=== PATIENT | female | born 1970 | race African-American/Black ===

== ENCOUNTER 2017-05-03 18:03 | Emergency (ER) | payer SELFPAY ==
[2017-05-03] MEDS ORDERED: NS 0.9% 1000 ML* 1,000 ML IV ONE (18:17)
[2017-05-03] MEDS ORDERED: methylPREDNISolone 125 MG* 2 ML VIAL IV ONE (18:17)
[2017-05-03] MEDS ORDERED: Magnesium Sulfate 2 GM IV* 2 GM/50 ML BAG IVPB ONE (18:19)
[2017-05-03] MEDS ORDERED: Albuterol/Ipratropium NEB.SOL* Albuterol 2.5 MG/Ipratropium 0.5 MG 3 ML ONE (18:27)
[2017-05-03] MEDS: Albuterol/Ipratropium NEB.SOL* Albuterol 2.5 MG/Ipratropium 0.5 MG 3 ML INH SCH ×2 (18:33→19:03)
--- NOTE | 2017-05-03 18:43 | RAD ---
INDICATION: Shortness of breath. COMPARISON: Comparison is made with a prior study from August 29, 2011. TECHNIQUE: A portable view of the chest was obtained. FINDINGS: Cardiac and mediastinal contours appear to be within normal limits. The lungs are clear. No pleural effusion is seen. IMPRESSION: NO EVIDENCE FOR ACUTE DISEASE.
[2017-05-03 19:02] LABS: Hematocrit 39 % (35-47); Hemoglobin 12.8 g/dl (12.0-16.0); Mean Corpuscular HGB Conc 33 g/dl (31-36); Mean Corpuscular Hemoglobin 28 pg (27-31); Mean Corpuscular Volume 87 fL (80-97); Mean Platelet Volume 8 um3 (7.4-10.4); Red Blood Count 4.51 10^6/ul (4.0-5.4); Red Cell Distribution Width 13 % (10.5-15); White Blood Count 15.1 10^3/ul (3.5-10.8)
[2017-05-03 19:03] LABS: Add Diff/Slide Review? Slide Review Added; Comments Flag Yes
[2017-05-03 19:17] LABS: ALT 18 U/L (7-52); AST 17 U/L (13-39); Albumin 3.6 g/dL (3.2-5.2); Alkaline Phosphatase 43 U/L (34-104); Anion Gap 6 mmol/L (2-11); BUN/Creatinine Ratio 9.3 (8-20); Blood Urea Nitrogen 11 mg/dL (6-24); C Reactive Protein < 1.00 mg/L (< 5.00); CO2 Carbon Dioxide 24 mmol/L (22-32); Calcium 9.1 mg/dL (8.6-10.3); Chloride 107 mmol/L (101-111); EGFR African American 62.9 (>60); EGFR Non-African American 48.9 (>60); Globulin 2.8 g/dL (2-4); Glucose 103 mg/dL (70-100); Potassium 3.7 mmol/L (3.5-5.0); Sodium 137 mmol/L (133-145); Total Protein 6.4 g/dL (6.4-8.9)
[2017-05-03] MEDS ORDERED: predniSONE TAB* 20 MG PO ONE (21:30)
--- NOTE | 2017-05-03 21:30 | ED ---
Course/Dx - Course Course Of Treatment: IMPROVED IN ED, WISHES TO GO HOME. PT DENIES S/SX INFECTION. DISCHARGE HOME STABLE. - Diagnoses Provider Diagnoses: Asthma exacerbation
[2017-05-03 21:59] VITALS: BP 114/63
[2017-05-03] MEDS ORDERED: Albuterol HFA INHALER* 8 gm MDI INH ONE (22:04)
--- NOTE | 2017-05-04 08:31 | ED ---
Caridad Young SooYoung, scribed for Prosper Strickland MD on 05/03/17 at 1816 . Shortness of Breath - HPI Summary HPI Summary: A 47 y/o F presents ED with c/o SOB onset two days ago. Pert PMHx: asthma. Associated sx: productive cough. Pt states that when she coughs it feels as though the phlegm gets stuck. Denies fever, chills. Her last asthma attack was approximately two months ago. Pt admits to medication non-compliance. - History of Current Complaint Chief Complaint: EDShortnessOfBreath Time Seen by Provider: 05/03/17 18:12 Hx Obtained From: Patient Onset/Duration: Lasting Days, Still Present Current Severity: Moderate Associated Signs & Symptoms: Cough (Productive) - Allergy/Home Medications Allergies/Adverse Reactions: Allergies Allergy/AdvReac Type Severity Reaction Status Date / Time Pollen Extract Allergy Mild Congestion Verified 11/01/14 12:22 Dust Mite Extract Allergy Congestion Verified 11/01/14 12:22 Molds & Smuts Allergy Difficulty Verified 11/01/14 12:22 Breathing PMH/Surg Hx/FS Hx/Imm Hx Previously Healthy: No Endocrine/Hematology History: Denies: Hx Anticoagulant Therapy, Hx Diabetes, Hx Thyroid Disease Cardiovascular History: Denies: Hx Hypertension, Hx Pacemaker/ICD Respiratory History: Reports: Hx Asthma Denies: Hx Chronic Obstructive Pulmonary Disease (COPD) History: Denies: Hx Renal Disease Sensory History: Reports: Hx Contacts or Glasses Opthamlomology History: Reports: Hx Contacts or Glasses Neurological History: Denies: Hx Dementia, Hx Seizures Psychiatric History: Reports: Hx Anxiety, Hx Inpatient Treatment, Hx Community Mental Health Tx, Hx Schizophrenia Denies: Hx Attention Deficit Hyperactivity Disorder, Hx Eating Disorder, Hx Depression, Hx Panic Disorder, Hx Post Traumatic Stress Disorder, Hx Bipolar Disorder, Hx Suicide Attempt, Hx of Violent Episodes Against Others, Hx Substance Abuse, Other Psychiatric Issues/Disorders - Immunization History Date of Tetanus Vaccine: UNKNOWN Date of Influenza Vaccine: unknown Infectious Disease History: Denies: Hx Hepatitis, Hx Human Immunodeficiency Virus (HIV), Traveled Outside the US in Last 30 Days - Family History Known Family History: Positive: Other - MENTAL HEALTH - MOTHER - Social History Occupation: Employed Full-time Lives: With Family Alcohol Use: None Hx Substance Use: No Substance Use Type: Reports: None Hx Tobacco Use: No Smoking Status (MU): Never Smoked Tobacco Review of Systems Negative: Fever, Chills Positive: Shortness Of Breath, Cough - PRODUCTIVE All Other Systems Reviewed And Are Negative: Yes Physical Exam - Summary Physical Exam Summary: VITAL SIGNS: Reviewed. GENERAL: Patient is a well-developed and THIN FEMALE. DISTRESS SECONDARY TO SOB , SHE IS ABLE TO SPEAK IN FULL SENTENCES. HEAD AND FACE: No signs of trauma. No ecchymosis, hematomas or skull depressions. No sinus tenderness. EYES: PERRLA, EOMI x 2, No injected conjunctiva, no nystagmus. EARS: Hearing grossly intact. Ear canals and tympanic membranes are within normal limits. MOUTH: Oropharynx within normal limits. NECK: Supple, trachea is midline, no adenopathy, no JVD, no carotid bruit, no c- spine tenderness, neck with full ROM. CHEST: Symmetric, no tenderness at palpation LUNGS: LOW AIR MOVEMENT, SLIGHT WHEEZING. CVS: Regular rate and rhythm, S1 and S2 present, no murmurs or gallops appreciated. ABDOMEN: Soft, non-tender. No signs of distention. No rebound, no guarding, and no masses palpated. Bowel sounds are normal. EXTREMITIES: FROM in all major joints, no edema, no cyanosis or clubbing. NEURO: Alert and oriented x 3. No acute neurological deficits. Speech is normal and follows commands. SKIN: Dry and warm Triage Information Reviewed: Yes Vital Signs On Initial Exam: Initial Vitals BP 128/82 05/03/17 18:08 Vital Signs Reviewed: Yes Diagnostics - Vital Signs Vital Signs Temp Pulse Resp BP Pulse Ox 05/03/17 21:57 98.6 F 93 16 114/63 05/03/17 21:56 92 94 05/03/17 21:54 114/63 05/03/17 19:36 92 19 150/131 96 05/03/17 19:32 90 15 97 05/03/17 19:00 92 19 99 05/03/17 18:53 82 18 98 05/03/17 18:30 87 19 127/75 98 05/03/17 18:10 87 98 05/03/17 18:09 98.4 F 117 18 128/82 98 05/03/17 18:08 128/82 - Laboratory Lab Results: Lab Results 05/03/17 05/03/1717 Range/Units 18:55 18:55 18:55 WBC 15.1 H (3.5-10.8) 10^3/ul RBC 4.51 (4.0-5.4) 10^6/ul Hgb 12.8 (12.0-16.0) g/dl Hct 39 (35-47) % MCV 87 (80-97) fL MCH 28 (27-31) pg MCHC 33 (31-36) g/dl RDW 13 (10.5-15) % Plt Count 220 (150-450) 10^3/ul MPV 8 (7.4-10.4) um3 Neut % (Auto) 40.6 (38-83) % Lymph % (Auto) 35.7 (25-47) % [place] % (Auto) 6.5 (1-9) % Eos % (Auto) 16.8 H (0-6) % Baso % (Auto) 0.4 (0-2) % Absolute Neuts (auto) 6.1 (1.5-7.7) 10^3/ul Absolute Lymphs (auto) 5.4 H (1.0-4.8) 10^3/ul Absolute Monos (auto) 1.0 H (0-0.8) 10^3/ul Absolute Eos (auto) 2.5 H (0-0.6) 10^3/ul Absolute Basos (auto) 0.1 (0-0.2) 10^3/ul Absolute Nucleated RBC 0.01 10^3/ul Nucleated RBC % 0 Hem Pathologist Commnt Pending Sodium 137 (133-145) mmol/L Potassium 3.7 (3.5-5.0) mmol/L Chloride 107 (101-111) mmol/L Carbon Dioxide 24 (22-32) mmol/L Anion Gap 6 (2-11) mmol/L BUN 11 (6-24) mg/dL Creatinine 1.18 H (0.51-0.95) mg/dL Est GFR ( Amer) 62.9 (>60) Est GFR (Non-Af Amer) 48.9 (>60) BUN/Creatinine Ratio 9.3 (8-20) Glucose 103 H (70-100) mg/dL Lactic Acid 1.5 (0.5-2.0) mmol/L Calcium 9.1 (8.6-10.3) mg/dL Total Bilirubin 0.60 (0.2-1.0) mg/dL AST 17 (13-39) U/L ALT 18 (7-52) U/L Alkaline Phosphatase 43 (34-104) U/L C-Reactive Protein < 1.00 (< 5.00) mg/L Total Protein 6.4 (6.4-8.9) g/dL Albumin 3.6 (3.2-5.2) g/dL Globulin 2.8 (2-4) g/dL Albumin/Globulin Ratio 1.3 (1-3) Result Diagrams: 05/03/17 18:55 05/03/17 18:55 Lab Statement: Any lab studies that have been ordered have been reviewed, and results considered in the medical decision making process. - Radiology CXR Xray Interpretation: No Acute Changes - IMPRESSION: No evidence for acute dz. Radiology Interpretation Completed By: Radiologist - EKG 1 EKG Rhythm: Sinus Rhythm - 80bpm ST Segment: Normal - no ST elevation Course/Dx - Course Assessment/Plan: A 47 y/o F presents ED with c/o SOB onset two days ago. Pert PMHx: asthma. Associated sx: productive cough. Pt states that when she coughs it feels as though the phlegm gets stuck. Denies fever, chills. Her last asthma attack was approximately two months ago. Pt admits to medication non- compliance. In the ED course an IV access was obtained. Patient was placed in a quality assurance monitor. Patient was started with IV fluids. She was started with Solumedrol, Duonebs and Magnesium since patient has poor air movement. Labs within normal limits except for. Troponin #1: and Troponin # 2 (4 hours later): EKG shows a NSR at 80 BPM w/o ST elevations. CXR impression: No evidence of acute disease. . In the ED course she has been improving and stable. She will be signed out to Dr. Hendrickson to check for lab test and further disposition - Diagnoses Differential Diagnosis/HQI/PQRI: Positive: Asthma, Bronchitis, CHF, COPD Exacerbation Provider Diagnoses: Asthma exacerbation Discharge - Discharge Plan Condition: Stable Disposition: HOME Discharge Disposition Comment: SO to Dr. Sosa pending neb treatment, dx Prescriptions: predniSONE TAB* [Deltasone TAB*] 40 mg PO DAILY #8 tab Patient Education Materials: Asthma (ED) Referrals: [facility] [Outside] Additional Instructions: FOLLOW UP WITH YOUR DOCTOR. RETURN TO THE EMERGENCY DEPARTMENT FOR ANY WORSENING OF YOUR CONDITION OR QUESTIONS OR CONCERNS. The documentation as recorded by the Caridad foss SooYoung accurately reflects the service I personally performed and the decisions made by , Prosper Strickland MD.
== END 2017-05-03 21:57 | disposition home or self-care (01) ==
LOC: ED 18:03
DX: J45.901 Unspecified asthma with (acute) exacerbation (principal); R06.02 Shortness of breath; R05 Cough
CPT/HCPCS: 36415; 71010; 80053; 83605; 85025; 85060; 86140; 93005; 94640; 99283; A9270-GY; J2930; J7512

== ENCOUNTER 2017-06-11 04:52 | Inpatient (IN) | payer MEDICAID ==
[2017-06-11] MEDS ORDERED: LORazepam INJ* 2 MG/ML 1 ML VIAL ONE (05:07)
[2017-06-11] MEDS ORDERED: LORazepam INJ* 2 MG/ML 1 ML VIAL IM ONE (05:20)
--- NOTE | 2017-06-11 05:20 | ED ---
Mimi Young Rebecca, scribed for Juan David Torrez MD on 06/11/17 at 0510 . Psychiatric Complaint - HPI Summary HPI Summary: Pt is a 47 y/o F BIBA as a 941 who presents to ED in a catatonic state. Per EMS , she was found in the bathroom at work at 0430, standing in a catatonic state. At this point, she will not speak or allow anyone to touch her. Sx aggravated and alleviated by nothing. 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 Previously, catatonic state has been alleviated by 1 mg Ativan IM TID. Last admission for similar sx was in 2013. Level 5 caveat due to catatonic state. - History Of Current Complaint Time Seen by Provider: 06/11/17 05:05 Hx Obtained From: Medical Records Hx From Patient Unobtainable Due To: Other - Catatonic state Onset/Duration: Still Present Timing: Constant Aggravating Factor(s): Nothing Alleviating Factor(s): Nothing Associated Signs And Symptoms: Positive: Negative Related History: Positive For: Prior Psychiatric Issues - Schizophrenia - Allergies/Home Medications Allergies/Adverse Reactions: Allergies Allergy/AdvReac Type Severity Reaction Status Date / Time Pollen Extract Allergy Mild Congestion Verified 11/01/14 12:22 Dust Mite Extract Allergy Congestion Verified 11/01/14 12:22 Molds & Smuts Allergy Difficulty Verified 11/01/14 12:22 Breathing Home Medications: Home Medications NK [No Home Medications Reported] 06/11/17 [History Confirmed 06/11/17] PMH/Surg Hx/FS Hx/Imm Hx Endocrine/Hematology History: Denies: Hx Anticoagulant Therapy, Hx Diabetes, Hx Thyroid Disease Cardiovascular History: Denies: Hx Hypertension, Hx Pacemaker/ICD Respiratory History: Reports: Hx Asthma Denies: Hx Chronic Obstructive Pulmonary Disease (COPD) History: Denies: Hx Renal Disease Sensory History: Reports: Hx Contacts or Glasses Opthamlomology History: Reports: Hx Contacts or Glasses Neurological History: Denies: Hx Dementia, Hx Seizures Psychiatric History: Reports: Hx Anxiety, Hx Inpatient Treatment, Hx Community Mental Health Tx, Hx Schizophrenia Denies: Hx Attention Deficit Hyperactivity Disorder, Hx Eating Disorder, Hx Depression, Hx Panic Disorder, Hx Post Traumatic Stress Disorder, Hx Bipolar Disorder, Hx Suicide Attempt, Hx of Violent Episodes Against Others, Hx Substance Abuse, Other Psychiatric Issues/Disorders - Immunization History Date of Tetanus Vaccine: UNKNOWN Date of Influenza Vaccine: unknown Infectious Disease History: Denies: Hx Hepatitis, Hx Human Immunodeficiency Virus (HIV), Traveled Outside the US in Last 30 Days - Family History Known Family History: Positive: Other - MENTAL HEALTH - MOTHER - Social History Alcohol Use: None Hx Substance Use: No Substance Use Type: Reports: None Hx Tobacco Use: No Smoking Status (MU): Never Smoked Tobacco Review of Systems - ROS Summary Review of Systems Summary: Level 5 caveat due to catatonic state. Negative: Fever Positive: Other - Catatonic state All Other Systems Reviewed And Are Negative: No Physical Exam Triage Information Reviewed: Yes Vital Signs On Initial Exam: Initial Vitals Temp Pulse Resp BP Pulse Ox 98.0 F 110 18 127/76 98 06/11/17 04:55 06/11/17 04:55 06/11/17 04:55 06/11/17 04:55 06/11/17 04:55 Vital Signs Reviewed: Yes Completion Of Physical Exam Limited Due To: Altered Mental Status Appearance: Positive: No Pain Distress Skin: Positive: Warm Head/Face: Positive: Normal Head/Face Inspection ENT: Positive: Hearing grossly normal Respiratory/Lung Sounds: Positive: Breath Sounds Present Cardiovascular: Positive: RRR Neurological: Positive: Normal Gait Diagnostics - Vital Signs Vital Signs Temp Pulse Resp BP Pulse Ox 06/11/17 04:55 98.0 F 110 18 127/76 98 - Laboratory Result Diagrams: 06/11/17 06:25 06/11/17 06:25 Lab Statement: Any lab studies that have been ordered have been reviewed, and results considered in the medical decision making process. Course/Dx - Course Assessment/Plan: Pt is a 47 y/o F BIBA as a 941 who presents to ED in a catatonic state. Per EMS, she was found in the bathroom at work at 0430, standing in a catatonic state. At this point, she will not speak or allow anyone to touch her. 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 Previously, catatonic state has been alleviated by 1 mg Ativan IM TID. Last admission for similar sx was in 2013. Level 5 caveat due to catatonic state. In the ED course, pt was administered 1 mg Ativan IM. After [facility], it has been determined that the pt will be admitted. - Differential Dx/Clinical Impression Provider Diagnosis: Psychosis Discharge - Discharge Plan Condition: Fair Disposition: ADMITTED TO [facility] Referrals: No Primary Care Phys,NOPCP [Primary Care Provider] - The documentation as recorded by the Mimi foss Rebecca accurately reflects the service I personally performed and the decisions made by me, Juan David Torrez MD.
[2017-06-11 06:38] LABS: Hematocrit 36 % (35-47); Hemoglobin 11.6 g/dl (12.0-16.0); Mean Corpuscular HGB Conc 32 g/dl (31-36); Mean Corpuscular Hemoglobin 29 pg (27-31); Mean Corpuscular Volume 89 fL (80-97); Mean Platelet Volume 7 um3 (7.4-10.4); Red Cell Distribution Width 14 % (10.5-15)
[2017-06-11 06:51] LABS: ALT 19 U/L (7-52); AST 24 U/L (13-39); Albumin 4.1 g/dL (3.2-5.2); Alkaline Phosphatase 42 U/L (34-104); Anion Gap 9 mmol/L (2-11); BUN/Creatinine Ratio 19.3 (8-20); Blood Urea Nitrogen 17 mg/dL (6-24); CO2 Carbon Dioxide 20 mmol/L (22-32); Calcium 9.7 mg/dL (8.6-10.3); Chloride 106 mmol/L (101-111); EGFR African American 88.2 (>60); EGFR Non-African American 68.6 (>60); Globulin 2.8 g/dL (2-4); Glucose 122 mg/dL (70-100); Potassium 4.1 mmol/L (3.5-5.0); Sodium 135 mmol/L (133-145); Total Protein 6.9 g/dL (6.4-8.9)
[2017-06-11 07:09] LABS: Acetaminophen < 15 mcg/mL; Alcohol < 10 mg/dL (<10); Salicylate < 2.50 mg/dL (<30)
[2017-06-11 07:20] LABS: TSH (Thyroid Stimulating Horm) 3.06 mcIU/mL (0.34-5.60)
[2017-06-11] MEDS ORDERED: Al Hydrox/Mg Hydrox/Simet LIQ* 30 ML UDC PO PRN (10:35)
[2017-06-11] MEDS ORDERED: Acetaminophen TAB* 325 MG PO PRN (10:35)
[2017-06-11] MEDS ORDERED: LORazepam INJ* 2 MG/ML 1 ML VIAL IM PRN (10:36)
[2017-06-11] MEDS: Vitamin THERAPEUTIC TAB PO SCH (11:10)
[2017-06-11] MEDS: Paliperidone TAB* 6 MG PO SCH (13:14)
--- NOTE | 2017-06-11 20:41 | HP ---
PSYCHIATRIC HISTORY AND PHYSICAL: DATE OF ADMISSION: 06/11/17 JUSTIFICATION FOR ADMISSION: The patient is catatonic, mute, unresponsive and clearly unable to care for herself in a less restrictive setting. CHIEF COMPLAINT: Catatonia. HISTORY OF PRESENT ILLNESS: The patient is 47-year-old single female with a past history of psychotic disorder and catatonia who was brought in by an ambulance after she was discovered in a bathroom at her place of work, unresponsive and apparently catatonic. After being brought in to the emergency room, she did not respond to attempts to interact with her, was physically withdrawn, not accepting medications, not accepting food or drink. Her daughter and her mother were both present in the ED and stated that she had recently lost her insurance and was unable to afford her medications. Their best estimate was that she has been off medication some time between 6 and 12 months. As I evaluate the patient, she is sitting on her bed with her legs folded, staring straight forward, she is unable to make eye contact. She is verbally nonresponsive. We have placed both food and water by her bedside, which are untouched and she has been refusing medications. The patient is unable to provide any collateral history at this time. PAST PSYCHIATRIC HISTORY: The patient has had several past admissions in various psychiatric settings. Her first hospitalization occurred in [place], [place], following a suicide attempt several years ago. Her first psychiatric hospitalization here at [facility] was in August 2012, then again in April 2013, then again in May 2013, and most recently in November 2013. All of her hospitalizations at [facility] have had the similar presentation of catatonia with mutism, immobility, staring and social withdrawal. Prior medication trials have included olanzapine, Invega, lorazepam and sertraline. Typically the patient has a history of poor followup. She has been referred in the past to [facility] only to become nonadherent with medications for various reasons. 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 Her first hospitalization was for cutting her wrist, but she has had no further self-harm since then. SUBSTANCE ABUSE HISTORY: Positive for alcohol abuse in her early 20s, however, she has been sober since the age of 24. She does not abuse illicit drugs and she is a nonsmoker. MEDICAL HISTORY: Significant for some unknown thyroid problem. CURRENT MEDICATIONS: None. FAMILY HISTORY: The patient's mother has had a history of psychotic episodes. SOCIAL HISTORY: The patient graduated from high school and had some additional training in computers. She has 3 children from 3 different fathers. She currently lives with her 20-year-old daughter and 28-year-old son. She also has a 24-year- old son who lives in town. She has never been . 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 REVIEW OF SYSTEMS: Unable to provide. PHYSICAL EXAMINATION VITAL SIGNS: Blood pressure 127/76, heart rate 110, respiratory rate 18, temperature 98.0 degrees Fahrenheit. Oxygen saturations are 98% on room air. HEENT: Head is normocephalic, atraumatic. NECK: Supple. CHEST: Clear to auscultation bilaterally. CARDIAC: Exam reveals normal heart sounds. ABDOMEN: Soft and nontender. SKIN: Warm and dry. MUSCULOSKELETAL: No sign of edema. NEUROLOGICALLY: She is grossly intact with no focal deficits. LABORATORY DATA: White blood cells slightly elevated at 14.0, lymphocyte percentage low at 14.7, absolute neutrophils elevated at 10.8. Complete metabolic panel significant for slightly elevated glucose at 122, serum alcohol is negligible. MENTAL STATUS EXAMINATION: The patient is an female who is wearing what appears to be a black kitchen staff work outfit. She is clean and well groomed. She is sitting on her bed [place] style, staring straight forward. She is unresponsive with food and water which are untouched around her. Speech is mute. Mood would appear to be anxious with a blunted affect. Thought process reveals extreme paucity with impoverished content. She is denying suicidal or homicidal ideations. She denies auditory or visual hallucinations, although she clearly seems to be responding to internal stimuli. Insight and judgement are difficult to ascertain as she is nonverbal. Cognitively she is awake and alert but unresponsive. DIAGNOSES: [place] I: Unspecified psychotic disorder, rule out schizophrenia versus psychosis secondary to depression. [place] II: Deferred. [place] III: Unspecified thyroid illness. [place] IV: Moderate access to healthcare stressors. [place] V: At this time is 20. IMPRESSION: The patient is a 47-year-old single female with a history of psychotic and catatonic episodes who was brought in by an ambulance after being discovered at work being unresponsive and apparently catatonic. The patient clearly is unable to care for herself in a less restrictive setting as she is currently unable to eat, drink, bathe or toilet herself and is therefore unsafe to be discharged to the outpatient setting. PLAN: The patient is admitted to the adult behavioral health unit where she is placed on q.15 minute checks for her own safety. We will employ intramuscular lorazepam 2 mg every 6 hours as needed for catatonia. We will start a trial of Invega 6 mg p.o. daily. The patient's lack of insurance needs to be addressed and perhaps we can have her meet with a medicaid point of care technician. We will be receiving collateral information from her family and will arrange reasonable followup in the community for that time after which she is cleared from the inpatient unit. [id number]/[facility] #: [id number] [place]
[2017-06-12] MEDS ORDERED: LORazepam INJ* 2 MG/ML 1 ML VIAL IM ONE (03:22)
[2017-06-12] MEDS ORDERED: LORazepam INJ* 2 MG/ML 1 ML VIAL ONE (03:25)
[2017-06-12] MEDS: Paliperidone TAB* 6 MG PO SCH (10:15)
[2017-06-12] MEDS: Vitamin THERAPEUTIC TAB PO SCH (10:15)
--- NOTE | 2017-06-12 14:59 | PN ---
Subjective - Subjective Service Type: 57017 Hosp care 15 min low complexity Subjective: Patient is showing variability in her presentation so far today, appearing cooperative and answering questions at times and at others, appearing unresponsive and blocked. She was able to eat breakfast this morning but not much for lunch. Family visited at noon but patient was minimally interactive. She did take her paliperidone this morning. Patient currently resting in bed, stating that she is extremely tired. She denies SI or HI. Objective - Appearance Appearance: Well Developed/Nourished Dysmorphic Features: No Hygiene: Normal Grooming: Well Kept - Behavior Psychomotor Activities: Abnormal-Decreased Exhibits Abnormal Movement: No - Attitude and Relatedness Attitude and Relatedness: Withdrawn Eye Contact: Poor - Speech Quality: Unpressured Latencies: Long Quantity: Terse - Mood Patient's Decription of Mood: "Anxious" - Affect Observed Affect: Tense - Thought Process Patient's Thought Process: Impoverished Thought Content: No Passive Wish, No Suicidal Planning, No Homicidal Ideation, No Paranoid Ideation - Sensorium Experiencing Hallucinations: No, Sensorium is Clear Type of Hallucinations: Visual: No, Auditory: No, Command: No - Level of Consciousness Level of Consciousness: Lethargic Orientation: Yes Intact, Yes Orientated to Time, Yes Orientated to Place, Yes Orientated to Person - Impulse Control Impulse Control: Poor - Insight and Judgement Insight and Judgement: Impaired - Group Participation Particating in Group Activities: No - Medication Management Medication Management Adherence: Partial Assessment - Assessment Merits Inpatient Hospitalization: For Immediate Safety, For Stabilization Inpatient DSM-IV Dx: Unspecified 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 single, AA female with a history of recurrent catatonic bouts of psychosis who returns to the hospital after being discovered unresponsive, mute and blocked in the bathroom of her place of employment. She has been nonadherent with antipsychotic meds for between 6 and 12 months secondary to losing her insurance. Plan - Plan Treatment Plan: Name: BERNABE ANN Birthdate: 1970 [id number] The patient remains symptomatic from psychosis. She has started taking paliperidone 6mg PO qday as prescribed. Continue to use lorazepam 2mg IM prn for catatonia. Needs continued inpatient level stabilization. Continued Medication Management: Start Medication Medications: Current Medications Acetaminophen (Tylenol Tab*) 650 mg PO Q4H PRN PRN Reason: PAIN or TEMP > 101 F Al Hydrox/Mg Hydrox/Simethicone (Maalox Plus*) 30 ml PO Q4H PRN PRN Reason: INDIGESTION Lorazepam (Ativan Inj*) 2 mg IM Q6H PRN PRN Reason: FOR CATATONIA Multivitamins (Theragran Tab*) 1 tab PO DAILY [facility] Last Admin: 06/12/17 10:15 Dose: 1 tab Paliperidone (Invega Tab*) 6 mg PO DAILY [facility] Last Admin: 06/12/17 10:15 Dose: 6 mg - Discharge Plan Discharge Plan: Inpatient Hospitalization
[2017-06-13] MEDS: Paliperidone TAB* 6 MG PO SCH (08:48)
[2017-06-13] MEDS: Vitamin THERAPEUTIC TAB PO SCH (08:48)
--- NOTE | 2017-06-13 13:15 | PN ---
Subjective - Subjective Service Type: 77750 Hosp care 15 min low complexity Subjective: Bernabe is more alert and interactive today, although she presents as fatigued and resting in bed. She has taken the paliperidone two days in a row and is eating and drinking normally. I asked about the possibility of switching her to long acting injectable antipsychotic, which she declines, however, she is open to referral to the ACT team for more intensive outpatient services. She prefers staying on paliperidone to switching back to olanzapine. Patient denies SI or HI. Objective - Appearance Appearance: Thin Framed Dysmorphic Features: No Hygiene: Normal Grooming: Fairly Well Kept - Behavior Psychomotor Activities: Normal Exhibits Abnormal Movement: No - Attitude and Relatedness Attitude and Relatedness: Cooperative Eye Contact: Fair - Speech Quality: Unpressured Latencies: Normal Quantity: Terse - Mood Patient's Decription of Mood: "Okay" - Affect Observed Affect: Unvariable Affect Consistent with: Euthymia - Thought Process Patient's Thought Process: Impoverished Thought Content: No Passive Wish, No Suicidal Planning, No Homicidal Ideation, No Paranoid Ideation - Sensorium Experiencing Hallucinations: No, Sensorium is Clear Type of Hallucinations: Visual: No, Auditory: No, Command: No - Level of Consciousness Level of Consciousness: Lethargic Orientation: Yes Intact, Yes Orientated to Time, Yes Orientated to Place, Yes Orientated to Person - Impulse Control Impulse Control: Tenuous - Insight and Judgement Insight and Judgement: Fair - Group Participation Particating in Group Activities: No - Medication Management Medication Management Adherence: Yes Assessment - Assessment Merits Inpatient Hospitalization: For Immediate Safety, For Stabilization Inpatient DSM-IV Dx: Unspecified 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 single, AA female with a history of recurrent catatonic bouts of psychosis who returns to the hospital after being discovered unresponsive, mute and blocked in the bathroom of her place of employment. She has been nonadherent with antipsychotic meds for between 6 and 12 months secondary to losing her insurance. Plan - Plan Treatment Plan: Name: BERNABE ANN Birthdate: 1970 [id number] The patient's catatonia is improving on paliperidone 6mg PO qday, however, she is declining switch to the IM Sustenna formulation. She is agreeable with ACT referral. Needs assistance with getting back on Medicaid. Recommend continued inpatient level stabilization. Continued Medication Management: Start Medication Medications: Current Medications Acetaminophen (Tylenol Tab*) 650 mg PO Q4H PRN PRN Reason: PAIN or TEMP > 101 F Al Hydrox/Mg Hydrox/Simethicone (Maalox Plus*) 30 ml PO Q4H PRN PRN Reason: INDIGESTION Lorazepam (Ativan Inj*) 2 mg IM Q6H PRN PRN Reason: FOR CATATONIA Multivitamins (Theragran Tab*) 1 tab PO DAILY [facility] Last Admin: 06/13/17 08:48 Dose: 1 tab Paliperidone (Invega Tab*) 6 mg PO DAILY [facility] Last Admin: 06/13/17 08:48 Dose: 6 mg - Discharge Plan Discharge Plan: Inpatient Hospitalization Lab Results - Lab Results Lab Results: 06/11/17 06/11/17 06:25 06:25 WBC 14.0 H RBC 4.00 Hgb 11.6 L Hct 36 MCV 89 MCH 29 MCHC 32 RDW 14 Plt Count 240 MPV 7 L Neut % (Auto) 77.3 Lymph % (Auto) 14.7 L [place] % (Auto) 7.5 Eos % (Auto) 0 Baso % (Auto) 0.5 Absolute Neuts (auto) 10.8 H Absolute Lymphs (auto) 2.1 Absolute Monos (auto) 1.1 H Absolute Eos (auto) 0 Absolute Basos (auto) 0.1 Absolute Nucleated RBC 0.01 Nucleated RBC % 0.1 Sodium 135 Potassium 4.1 Chloride 106 Carbon Dioxide 20 L Anion Gap 9 BUN 17 Creatinine 0.88 Est GFR ( Amer) 88.2 Est GFR (Non-Af Amer) 68.6 BUN/Creatinine Ratio 19.3 Glucose 122 H Calcium 9.7 Total Bilirubin 1.10 H AST 24 ALT 19 Alkaline Phosphatase 42 Total Protein 6.9 Albumin 4.1 Globulin 2.8 Albumin/Globulin Ratio 1.5 TSH 3.06 Salicylates < 2.50 Acetaminophen < 15 Serum Alcohol < 10
[2017-06-14] MEDS: Vitamin THERAPEUTIC TAB PO SCH (09:19)
[2017-06-14] MEDS: Paliperidone TAB* 6 MG PO SCH (09:19)
--- NOTE | 2017-06-14 11:07 | PN ---
Subjective - Subjective Service Type: 18987 Hosp care 15 min low complexity Subjective: The patient is eating, drinking and toileting properly. She is responsive and able to negotiate her needs. She is tolerating paliperidone well and denies any untoward effects. Patient is participating more in milieu activities today. She's agreeable with following up with the ACT team but declines the offer of long acting Invega Sustenna. She denies SI or HI. Objective - Appearance Appearance: Well Developed/Nourished Dysmorphic Features: No Hygiene: Normal Grooming: Fairly Well Kept - Behavior Psychomotor Activities: Normal Exhibits Abnormal Movement: No - Attitude and Relatedness Attitude and Relatedness: Cooperative Eye Contact: Fair - Speech Quality: Unpressured Latencies: Normal Quantity: Terse - Mood Patient's Decription of Mood: "Okay" - Affect Observed Affect: Fair Affect Consistent with: Euthymia - Thought Process Patient's Thought Process: Coherent Thought Content: No Passive Wish, No Suicidal Planning, No Homicidal Ideation, No Paranoid Ideation - Sensorium Experiencing Hallucinations: No, Sensorium is Clear Type of Hallucinations: Visual: No, Auditory: No, Command: No - Level of Consciousness Level of Consciousness: Alert Orientation: Yes Intact, Yes Orientated to Time, Yes Orientated to Place, Yes Orientated to Person - Impulse Control Impulse Control: Tenuous - Insight and Judgement Insight and Judgement: Fair - Group Participation Particating in Group Activities: Yes - Medication Management Medication Management Adherence: Yes Assessment - Assessment Merits Inpatient Hospitalization: Consolidate Improvements, Pending Safe DC Plan Inpatient DSM-IV Dx: Unspecified 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 single, AA female with a history of recurrent catatonic bouts of psychosis who returns to the hospital after being discovered unresponsive, mute and blocked in the bathroom of her place of employment. She has been nonadherent with antipsychotic meds for between 6 and 12 months secondary to losing her insurance. Plan - Plan Treatment Plan: Name: BERNABE ANN Birthdate: 1970 [id number] The patient's catatonia is improving on paliperidone 6mg PO qday, however, she is declining switch to the IM Sustenna formulation. She is agreeable with ACT referral. Needs assistance with getting back on Medicaid. Recommend continued inpatient level stabilization. Consider d/c to home tomorrow if gains are sustained. Continued Medication Management: Start Medication Medications: Current Medications Acetaminophen (Tylenol Tab*) 650 mg PO Q4H PRN PRN Reason: PAIN or TEMP > 101 F Al Hydrox/Mg Hydrox/Simethicone (Maalox Plus*) 30 ml PO Q4H PRN PRN Reason: INDIGESTION Lorazepam (Ativan Inj*) 2 mg IM Q6H PRN PRN Reason: FOR CATATONIA Multivitamins (Theragran Tab*) 1 tab PO DAILY [facility] Last Admin: 06/14/17 09:19 Dose: 1 tab Paliperidone (Invega Tab*) 6 mg PO DAILY [facility] Last Admin: 06/14/17 09:19 Dose: 6 mg - Discharge Plan Discharge Plan: Outpatient Follow Up Outpatient Program: ACT team
[2017-06-14] MEDS ORDERED: Albuterol HFA INHALER* 8 gm MDI INH PRN (21:02)
[2017-06-15 07:47] VITALS: BP 95/58
[2017-06-15] MEDS: Paliperidone TAB* 6 MG PO SCH (09:45)
[2017-06-15] MEDS: Vitamin THERAPEUTIC TAB PO SCH (09:45)
--- NOTE | 2017-06-15 15:43 | DS ---
DATE OF ADMISSION: 06/11/2017. DATE OF DISCHARGE: 06/15/2017. DISCHARGE DIAGNOSES: AXIS I: Schizophrenia. AXIS II: Deferred. AXIS III: Unspecified thyroid issues. AXIS IV: Moderate, access to healthcare stressors. AXIS V: At the time of admission was 20 and at the time of discharge is 60. CONDITION AT THE TIME OF DISCHARGE: Stable. The patient is calm and cooperative. She is responsive, answering questions. In addition, she is taking care of her activities of daily living, including eating, drinking, toileting and bathing. She is dressing herself. 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 Her family has visited her several times on the unit and they are expressing that she is back to her psychiatric baseline and they are in support of the discharge plan. Furthermore, the patient has accepted follow- up treatment through the [facility] community treatment team which is the highest level of outpatient services available for consumers with mental illness. The patient denied suicidal or homicidal ideations and for the past two days she has been safe on all checks, eating all meals and responsive at all times while awake. We feel that she would be well-served receiving treatment in a less restrictive setting. MENTAL STATUS EXAMINATION AT THE TIME OF DISCHARGE: The patient is a small, slight of stature, -Burm[place] female who is dressed in casual clothing. She is clean and well groomed. She is calm and cooperative, makes good eye contact, and is easy to establish a rapport with. Her speech is normal in rate , tone and volume. Mood is euthymic. Affect is full. Thought process is linear and goal- directed. Thought content is significant for her desire to leave the hospital. She is denies suicidal or homicidal ideations. She denies auditory or visual hallucinations. Insight and judgement are fair giving her willingness to follow-up with outpatient mental health services. Cognitively she is awake and alert with what would appear to be an average intellect. DISCHARGE INSTRUCTIONS TO THE PATIENT: A. Medication: She is taking Paliperidone 6 mg p.o. daily. B. Diet: Regular. C. Activities: As tolerated. The patient is a nonsmoker. There are no laboratory or diagnostic studies pending at the time of discharge. D. Follow-up care: The patient is being met on the unit by the [facility] team for their intake process and they will provide her transportation home and continue to see her intensively at least six times per month in the community. HOSPITAL COURSE - PART A: Reason for admission: The patient is a 47-year-old, single, -Burm[place] female with a past history of psychotic disorder and catatonia who was brought in by an ambulance after she was discovered in a bathroom, at her place of work, unresponsive and apparently catatonic. After being brought in to the emergency room, she did not respond to attempts to interact with her, was physically withdrawn, not accepting medications, and not accepting food or drink. Her daughter and her mother were both present in the ED and stated that she had recently lost her insurance and was unable to afford her medications. The best estimate was that she had been off medications sometime between 6 and 12 months. As I evaluated her on our unit, she was sitting on her bed with her legs folded, staring straight forward. She was unable to make eye contact. She was verbally nonresponsive. We had placed food and water by her bedside which were untouched and she was refusing medications. In addition, she was incontinent of urine. The patient was not able to provide any collateral history at that time. HOSPITAL COURSE - PART B: Psychiatric treatment rendered: The patient was admitted to the Adult Behavioral Health Unit and placed on q.15 minute checks for her own safety. At times, due to her lack of self-care, she required intramuscular injections of Lorazepam, which did help make her behavior more purposeful and during those times she was able to eat and drink small amounts, but she remained somewhat unresponsive. She was agreeable to initiation of antipsychotic therapy with Paliperidone 6 mg p.o. daily. Within two days of starting the antipsychotic, she became much more clear, no longer blocked, able to eat, drink and toilet appropriately, able to answer questions. She was visited several times on the unit by her family and they were collaborative with the treatment team. We did offer the patient the option of taking Paliperidone through an injectable once monthly in the Invega Sustenna formulation; however, she declined this. However, she was willing to accept treatment by the [facility] team in order to reduce her tendency to discontinue medications and end up back in the hospital. Progressively, she became more social, more active on the unit, seen walking around, occasionally interacting with peers, going to groups, and eating 100 percent of meals. Her family was seen on the day just before discharge and they felt that she was back to her baseline self. At this time, she is awaiting intake by the [facility]. They are sending out representatives to not only meet with her, but provide her transportation home. Her prescription has been phoned in to the [facility] on [facility]. [id number]/CPS #: [id number] [place]
== END 2017-06-15 14:45 | disposition home or self-care (01) | DRG 885 ==
LOC: ED 04:52 → BSU 06:00 → ED 07:00 → UNDOADMIN 07:00
PROVIDERS: ADMIT Psychiatry & Neurology Psychiatry; ATTEND Psychiatry & Neurology Psychiatry
DX: F20.2 Catatonic schizophrenia (principal); Z91.14 Patient's other noncompliance with medication regimen; E07.9 Disorder of thyroid, unspecified; Z81.8 Family history of other mental and behavioral disorders; Z91.048 Other nonmedicinal substance allergy status; J45.909 Unspecified asthma, uncomplicated; F41.9 Anxiety disorder, unspecified
CPT/HCPCS: 36415; 80053; 80320; 80329; 84443; 85025; 99222; 99231; 99238; A9270-GY; G0480; J2060